=== PATIENT | female | born 1945 | race Two or more races ===

== ENCOUNTER 2020-05-12 20:57 | Emergency (ER) | payer MEDICAID ==
[~2020-05-12] VITALS: Ht 160 cm; Wt 75.0 kg
[2020-05-12] MEDS ORDERED: ACETAMINOPHEN 325MG TABLET PO ONE (21:45)
[2020-05-12 23:02] LABS: BASOPHILS % 0.3 % (0.0-2.0); EOSINOPHILS % 3.6 % (0.0-5.0); HEMATOCRIT. 35.6 % (36.0-48.0); HEMOGLOBIN. 11.8 g/dL (12.0-16.0); LYMPHOCYTES % 24.1 % (20.0-50.0); MEAN CORPUSCULAR HEMOGLOBIN 25.8 pg (28.0-32.0); MEAN CORPUSCULAR VOLUME 77.5 fL (81.0-99.0); MEAN PLATELET VOLUME 8.6 fl (7.4-10.4); MONOCYTES % 4.1 % (2.0-8.0); NEUTROPHILS % 67.9 % (40.0-76.0); PLATELET 278 x1000/uL (130-400); RED BLOOD CELL COUNT 4.59 mill/uL (4.2-5.4); RED CELL DISTRIBUTION WIDTH 16.6 % (11.6-14.6)
[2020-05-12 23:06] LABS: CHLORIDE 109 mEq/L (98-107)
[2020-05-12 23:20] LABS: INR 1.1; PROTHROMBIN TIME 11.7 sec (9.6-11.0)
[2020-05-13 00:58] VITALS: BP 109/45
[2020-05-13] MEDS ORDERED: KETOROLAC 15MG/ML VIAL IM ONE (01:30)
== END 2020-05-13 01:44 | disposition home or self-care (01) ==
LOC: ER 20:57
DX: M79.661 Pain in right lower leg (principal); I11.0 Hypertensive heart disease with heart failure; I50.9 Heart failure, unspecified; Z86.711 Personal history of pulmonary embolism; Z79.01 Long term (current) use of anticoagulants
CPT/HCPCS: 36415; 73590; 80053; 83880; 84484; 85025; 85610; 93005; 93970; 96372; 99285; J1885